=== PATIENT | female | born 1970 | race Caucasian/White ===

== ENCOUNTER 2018-11-11 04:59 | Emergency (ER) | payer BC ==
[~2018-11-11] VITALS: Ht 157.5 cm; Wt 88.9 kg
[2018-11-11 05:07] VITALS: BP 125/75; PULSE 71; RESP 17; Ht 157.5 cm; Wt 88.9 kg
--- NOTE | 2018-11-11 06:12 | ERD ---
ER Documentation Chief Complaint Chief Complaint RT THUMB PAIN AND SWELLING S/P INJURY, R/O INFECTION HPI Patient is a 48-year-old female no significant medical history presenting to the emergency department complaining of right thumb swelling, pain, discharge currently for the past 4 days. She denies any fevers. Pain is worse with movement of the finger. She went to an urgent care yesterday and was started on Bactrim and ibuprofen. Her symptoms have worsened since then. She denies any other symptoms at this time. ROS All systems reviewed and are negative except as per history of present illness. Allergies Allergies: Coded Allergies: No Known Allergy (Unverified , 11/11/18) PMhx/Soc Medical and Surgical Hx: pt denies Medical Hx, pt denies Surgical Hx History of Surgery: No Anesthesia Reaction: No Hx Neurological Disorder: No Hx Respiratory Disorders: No Hx Cardiac Disorders: No Hx Psychiatric Problems: No Hx Miscellaneous Medical Probl: No Hx Alcohol Use: Yes (OOC) Hx Substance Use: No Hx Tobacco Use: No Smoking Status: Never smoker FmHx Family History: No diabetes Physical Exam Vitals Vital Signs Date Temp Pulse Resp B/P (MAP) Pulse Ox O2 O2 Flow FiO2 Time Delivery Rate 11/11/18 97.9 71 17 125/75 98 05:07 (92) Physical Exam Const: No acute distress Head: Atraumatic Eyes: Normal Conjunctiva ENT: Normal External Ears, Nose and Mouth. Neck: Full range of motion. No meningismus. Resp: No respiratory distress. Skin: No petechiae or rashes Back: No midline or flank tenderness Ext: There is edema, erythema, purulent drainage noted to the distal tip and surrounding the nailbed of the right thumb. Patient is neurovascularly intact. There is no lymphatic streaking. Neur: Awake and alert Psych: Normal Mood and Affect Procedures/MDM 48-year-old female presenting to the emergency department with signs and symptoms most consistent with paronychia of the right thumb. The full risks, benefits, alternatives were explained to the patient and she gave verbal agreement for incision and drainage. I did discuss this patient's case with attending ED physician, Dr. Morenita Berrios who is in agreement. Paronychia incision and Drainage with irrigation by me: Location: Right thumb Anesthesia: Local 1% Lidocaine digital block Technique: Irrigated. Disrupted loculations w/ instrumentation Packing: None Complications: Neurovascularly intact post procedure 48 hour wound check. Scar minimization instructions given. Patient's infectious symptoms have stabilized while they have been evaluated in the department and are appropriate for outpatient care and work up. Exam and w/u not consistent w/ sepsis, meningitis, pneumonia, or surgical abdomen. Departure Diagnosis: Primary Impression: Paronychia of right thumb Condition: Fair Additional Instructions: Follow up with your PCP within the next 1-3 days for a repeat evaluation. If you require a referral to a specialist, your Primary Care Provider may be able to provide this for you. In most patient cases, a referral is not required. If you have further questions regarding this matter, please ask your Primary Care Provider. Return the the emergency department immediately if symptoms worsen or change. If you have any questions regarding medications, ask your pharmacist or us before you leave. If any adverse reactions, occur while taking your medications, discontinue the treatment and return to the emergency department immediately. If any new or worsening symptoms, uncontrolled fevers, or other unexplained symptoms occur, return to the emergency department immediately. Take your medications as directed, and complete the entire course of treatment. ISMA CERRATO PA-C Nov 11, 2018 06:12
[2018-11-11] MEDS ORDERED: IBUP800T48 PO (06:15)
[2018-11-11] MEDS ORDERED: CLIN300C10 PO (06:15)
== END 2018-11-11 06:37 | disposition home or self-care (01) ==
LOC: FTE 04:59
DX: L03.011 Cellulitis of right finger (principal)